=== PATIENT | female | born 1975 | race American Indian/Alaskan Native ===

== ENCOUNTER 2017-04-26 15:16 | Emergency (ER) | payer BC, OTHER ==
--- NOTE | 2017-04-26 17:39 | Emergency Department Report ---
Chief Complaint: Chest Pain Stated Complaint: BACK/CHEST PAIN Time Seen by Provider: 04/26/17 17:37 - HPI History of Present Illness: pt states she thought she was having gas pain last night. pt reports a pain behind her L shoulder blade. pt states today she was having chest pain - ROS Review of Systems: + cp + abd pain - Exam Physical Exam: abd soft and not tender + chest wall tenderness MSE screening note: Focused history and physical exam performed. Due to findings the following was ordered: ekg, labs, xr ED Disposition for MSE Condition: Stable
[2017-04-26 18:25] LABS: Basophils % (Auto) 1.1 % (0.0-1.8); Eosinophils % (Auto) 1.3 % (0.0-4.3); Hematocrit 33.9 % (30.3-42.9); Hemoglobin 10.6 gm/dl (10.1-14.3); Mean Corpuscular HGB Conc 31 % (30-34); Mean Corpuscular Volume 71 fl (79-97); Platelet Count 284 K/mm3 (140-440); Red Cell Distribution Width 18.7 % (13.2-15.2); White Blood Count 5.3 K/mm3 (4.5-11.0)
[2017-04-26 18:32] LABS: Mean Corpuscular Hemoglobin 22 pg (28-32)
[2017-04-26 18:36] LABS: INR 1.07 (0.87-1.13)
[2017-04-26 18:39] LABS: Alanine Aminotransferase 9 units/L (7-56); Albumin 4.4 g/dL (3.9-5); Albumin/Globulin Ratio 1.3 %; Alkaline Phosphatase 58 units/L (35-129); Anion Gap 18 mmol/L; Blood Urea Nitrogen 6 mg/dL (7-17); Calcium 9.5 mg/dL (8.4-10.2); Carbon Dioxide 26 mmol/L (22-30); Chloride 98.7 mmol/L (98-107); Glucose 86 mg/dL (65-100); Lipase 32 units/L (13-60); Potassium 3.8 mmol/L (3.6-5.0); Sodium 139 mmol/L (137-145); Total Protein 7.8 g/dL (6.3-8.2)
[2017-04-26] MEDS ORDERED: TORADOL IV ONE (23:15)
[2017-04-27] MEDS ORDERED: NORCO 10/325 PO ONE (00:36)
[2017-04-27] MEDS ORDERED: TYLENOL PO ONE (00:46)
[2017-04-27] MEDS ORDERED: MOTRIN PO ONE (00:46)
--- NOTE | 2017-04-27 00:49 | Emergency Department Report ---
ED General Adult HPI - General Chief complaint: Chest Pain Stated complaint: BACK/CHEST PAIN Time Seen by Provider: 04/26/17 17:37 Source: patient Mode of arrival: Ambulatory Limitations: No Limitations - History of Present Illness Initial comments: Patient is a 41-year-old female who presents with left-sided sided shoulder pain as been going on for last 4 days patient states that the pain is sharp it is intermittent. It is a 7 out of 10 breathing and makes the pain worse nothing makes it better. Patient denies recent travel, oral contraceptives, leg swelling, or any shortness of breath. Patient's pain radiates to her back. There are no symptoms associated with this She states she is tried over-the- counter medications but nothing seems to help her pain. She denies any nausea vomiting or any other symptoms. Severity scale (0 -10): 4 - Related Data Home Medications Medication Instructions Recorded Confirmed Last Taken Triamter/Hctz 37.5-25 mg 1 tab PO QDAY 12/05/14 04/26/17 12/05/14 [Maxzide-25] Previous Rx's Medication Instructions Recorded Last Taken Type Naproxen [Naproxen TAB] 250 mg PO Q6HR PRN #20 tablet 04/27/17 Unknown Rx Allergies Allergy/AdvReac Type Severity Reaction Status Date / Time No Known Allergies Allergy Verified 12/04/14 21:49 ED Review of Systems ROS: Stated complaint: BACK/CHEST PAIN Other details as noted in HPI Constitutional: denies: chills, fever Eyes: denies: eye pain, eye discharge, vision change ENT: denies: ear pain, throat pain Respiratory: denies: cough, shortness of breath, wheezing Cardiovascular: denies: chest pain, palpitations Endocrine: no symptoms reported Gastrointestinal: denies: abdominal pain, nausea, diarrhea Genitourinary: denies: urgency, dysuria, discharge Musculoskeletal: other (shoulder pain ) Skin: denies: rash, lesions Neurological: denies: headache, weakness, paresthesias Psychiatric: denies: anxiety, depression Hematological/Lymphatic: denies: easy bleeding, easy bruising ED Past Medical Hx - Past Medical History Previous Medical History?: Yes Hx Hypertension: Yes Additional medical history: Anemia, normal hemoglobin in the 8 range. Uterine fibroids with history of menorrhagia - Surgical History Past Surgical History?: Yes - Social History Smoking Status: Never Smoker Substance Use Type: None - Medications Home Medications: Home Medications Medication Instructions Recorded Confirmed Last Taken Type Triamter/Hctz 37.5-25 mg 1 tab PO QDAY 12/05/14 04/26/17 12/05/14 History [Maxzide-25] Naproxen [Naproxen TAB] 250 mg PO Q6HR PRN #20 tablet 04/27/17 Unknown Rx ED Physical Exam - General Limitations: No Limitations General appearance: alert, in no apparent distress - Head Head exam: Present: atraumatic, normocephalic - Eye Eye exam: Present: normal appearance - ENT ENT exam: Present: mucous membranes moist - Neck Neck exam: Present: normal inspection - Respiratory Respiratory exam: Present: normal lung sounds bilaterally, chest wall tenderness. Absent: respiratory distress - Cardiovascular Cardiovascular Exam: Present: regular rate, normal rhythm. Absent: systolic murmur, diastolic murmur, rubs, gallop - GI/Abdominal GI/Abdominal exam: Present: soft, normal bowel sounds - Extremities Exam Extremities exam: Present: normal inspection - Back Exam Back exam: Present: normal inspection - Neurological Exam Neurological exam: Present: alert, oriented X3 - Psychiatric Psychiatric exam: Present: normal affect, normal mood - Skin Skin exam: Present: warm, dry, intact, normal color. Absent: rash ED Course Vital Signs 04/26/17 04/26/17 04/27/17 17:36 20:50 02:17 Temperature 97.1 F L Pulse Rate 70 50 L 50 L Respiratory 16 16 16 Rate Blood Pressure 156/101 Blood Pressure 125/73 126/68 [Left] O2 Sat by Pulse 100 100 100 Oximetry - Reevaluation(s) Reevaluation #1: 04/26/17 23:27 Patient states that she is feeling better will send patient home with oral analgesic medications. ED Medical Decision Making - Lab Data Result diagrams: 04/26/17 17:41 04/26/17 17:47 Laboratory Results - last 24 hr 04/26/17 04/26/17 04/26/17 17:41 17:41 17:46 WBC 5.3 RBC 4.80 Hgb 10.6 Hct 33.9 MCV 71 L MCH 22 L MCHC 31 RDW 18.7 H Plt Count 284 Lymph % (Auto) 48.0 H [place] % (Auto) 8.9 H Eos % (Auto) 1.3 Baso % (Auto) 1.1 Lymph # 2.6 [place] # 0.5 Eos # 0.1 Baso # 0.1 Seg Neutrophils % 40.7 Seg Neutrophils # 2.2 PT 14.5 INR 1.07 APTT 33.0 Sodium Potassium Chloride Carbon Dioxide Anion Gap BUN Creatinine Estimated GFR BUN/Creatinine Ratio Glucose Calcium Total Bilirubin AST ALT Alkaline Phosphatase Troponin T Total Protein Albumin Albumin/Globulin Ratio Lipase HCG, Qual Negative 04/26/17 04/26/17 17:47 23:28 WBC RBC Hgb Hct MCV MCH MCHC RDW Plt Count Lymph % (Auto) [place] % (Auto) Eos % (Auto) Baso % (Auto) Lymph # [place] # Eos # Baso # Seg Neutrophils % Seg Neutrophils # PT INR APTT Sodium 139 Potassium 3.8 Chloride 98.7 Carbon Dioxide 26 Anion Gap 18 BUN 6 L Creatinine 0.6 L Estimated GFR > 60 BUN/Creatinine Ratio 10.00 Glucose 86 Calcium 9.5 Total Bilirubin 0.20 AST 12 ALT 9 Alkaline Phosphatase 58 Troponin T < 0.010 < 0.010 Total Protein 7.8 Albumin 4.4 Albumin/Globulin Ratio 1.3 Lipase 32 HCG, Qual - Radiology Data Radiology results: image reviewed X-ray: Shows no acute pulmonary disease - Medical Decision Making Chief medical diagnosis: Shoulder arthralgia Differential medical diagnosis: Pneumothorax, pneumonia, constocondritis We'll get CBC, CMP, troponin, chest x-ray and IM pain control Due to patient's lab results being normal and physical exam being within the normal limits patient has pleuritic chest pain and they're to likely pull chest wall muscle. Due to patient's point tenderness patient unlikely has a PE and has no clinical syndrome for pulmonary embolism. Critical care attestation.: If time is entered above; I have spent that time in minutes in the direct care of this critically ill patient, excluding procedure time. ED Disposition Clinical Impression: Chest wall pain, Left shoulder pain Disposition: TO HOME OR SELFCARE Is pt being admited?: No Does the pt Need Aspirin: No Condition: Stable Instructions: Costochondritis (ED), Chest Pain (ED) Prescriptions: Naproxen [Naproxen TAB] 250 mg PO Q6HR PRN #20 tablet PRN Reason: Pain Referrals: PRIMARY CARE, [Primary Care Provider] - 3-5 Days Time of Disposition: 00:47
[2017-04-27 02:17] VITALS: BP 126/68
--- NOTE | 2017-04-27 09:36 | XRay Report ---
ROUTINE CHEST, TWO VIEWS: History: Chest pain. PA and lateral views demonstrate the heart and mediastinal contour to be of normal size and shape. The lungs are clear and fully expanded and the soft tissues and bony structures are normal. IMPRESSION: Normal study.
== END 2017-04-27 02:47 | disposition home or self-care (01) ==
LOC: ED 15:16
DX: R07.89 Other chest pain (principal); M25.512 Pain in left shoulder; I10 Essential (primary) hypertension; D64.9 Anemia, unspecified
CPT/HCPCS: 36415; 71020; 80053; 83690; 84484; 84703; 85025; 85610; 85730; 93005; 93010; 96374; 99284; J1885

== ENCOUNTER 2020-08-16 03:25 | Emergency (ER) | payer BC ==
[2020-08-16] MEDS ORDERED: ASPIRIN 325 MG TAB PO ONE (04:50)
[2020-08-16 05:26] LABS: Basophils # (Auto) 0.1 K/mm3 (0.0-0.1); Eosinophils # (Auto) 0.1 K/mm3 (0.0-0.4); Eosinophils % (Auto) 1.2 % (0.0-4.3); Hemoglobin 10.4 gm/dl (10.1-14.3); Lymphocytes # (Auto) 1.9 K/mm3 (1.2-5.4); Mean Corpuscular HGB Conc 33 % (30-34); Mean Corpuscular Volume 73 fl (79-97); Monocytes # (Auto) 0.6 K/mm3 (0.0-0.8); Platelet Count 248 K/mm3 (140-440); Red Blood Count 4.37 M/mm3 (3.65-5.03); Red Cell Distribution Width 17.9 % (13.2-15.2)
[2020-08-16 05:41] LABS: Blood Urea Nitrogen 5 mg/dL (7-17); Calcium 9.6 mg/dL (8.4-10.2); Hemolysis Index 6
[2020-08-16 05:44] LABS: BUN/Creatinine Ratio 7
--- NOTE | 2020-08-16 06:34 | XRay Report ---
CHEST PA AND LATERAL VIEWS INDICATION: Chest Pain. COMPARISON: 04/26/2017. FINDINGS: Support devices: None. Heart: Within normal limits. Lungs/Pleura: No acute pulmonary or pleural findings. IMPRESSION: 1. No acute findings. Signer Name: Wilberto Cole MD Signed: 08/16/2020 6:29 AM Workstation Name: [id number]
[2020-08-16 07:37] VITALS: BP 152/96
[2020-08-16] MEDS ORDERED: KETOROLAC 30 MG/1 ML INJ IV ONE (07:49)
--- NOTE | 2020-08-16 08:49 | Emergency Department Report ---
ED Chest Pain HPI - General Chief Complaint: Chest Pain Stated Complaint: HBP/DIZZY Time Seen by Provider: 08/16/20 06:54 Source: patient Mode of arrival: Ambulatory Limitations: No Limitations - History of Present Illness Initial Comments: Patient is a 44-year-old F [place] female with a past medical history of hypertension who is presenting with chest discomfort which started around 2 AM. Patient states the discomfort lasted approximately 30 minutes. Patient is denies any shortness of breath nausea vomiting or diaphoresis. Patient states she does also have some achiness in her left upper back as well as her posterior neck. Patient states the pain did start after eating Thanksgiving meal. Patient states she is compliant with her blood pressure medications. Blood pressure was elevated on arrival. - Related Data Home Medications Medication Instructions Recorded Confirmed Last Taken Triamter/Hctz 37.5-25 mg 1 tab PO QDAY 12/05/14 04/26/17 12/05/14 [Maxzide-25] Previous Rx's Medication Instructions Recorded Last Taken Type Naproxen [Naproxen TAB] 250 mg PO Q6HR PRN #20 tablet 04/27/17 Unknown Rx Allergies Allergy/AdvReac Type Severity Reaction Status Date / Time No Known Allergies Allergy Verified 12/04/14 21:49 Heart Score - HEART Score History: Slightly suspicious EKG: Normal Age: < 45 Risk factors: 1-2 risk factors Troponin: < normal limit HEART Score: 1 ED Review of Systems ROS: Stated complaint: HBP/DIZZY Other details as noted in HPI Comment: All other systems reviewed and negative ED Past Medical Hx - Past Medical History Previous Medical History?: Yes Hx Hypertension: Yes Additional medical history: Anemia, normal hemoglobin in the 8 range. Uterine fibroids with history of menorrhagia - Surgical History Past Surgical History?: Yes Additional Surgical History: Uterine Embolization - Social History Smoking Status: Never Smoker Substance Use Type: None - Medications Home Medications: Home Medications Medication Instructions Recorded Confirmed Last Taken Type Triamter/Hctz 37.5-25 mg 1 tab PO QDAY 12/05/14 04/26/17 12/05/14 History [Maxzide-25] Naproxen [Naproxen TAB] 250 mg PO Q6HR PRN #20 tablet 04/27/17 Unknown Rx ED Physical Exam - General Limitations: No Limitations General appearance: alert, in no apparent distress - Head Head exam: Present: atraumatic, normocephalic - Eye Eye exam: Present: normal appearance - ENT ENT exam: Present: mucous membranes moist - Neck Neck exam: Present: normal inspection - Respiratory Respiratory exam: Present: normal lung sounds bilaterally. Absent: respiratory distress, wheezes, rales, rhonchi - Cardiovascular Cardiovascular Exam: Present: regular rate, normal rhythm, normal heart sounds. Absent: systolic murmur, diastolic murmur, rubs, gallop - GI/Abdominal GI/Abdominal exam: Present: soft, normal bowel sounds. Absent: distended, tenderness, guarding, rebound - Extremities Exam Extremities exam: Present: normal inspection - Back Exam Back exam: Present: normal inspection - Neurological Exam Neurological exam: Present: alert, oriented X3 - Psychiatric Psychiatric exam: Present: normal affect, normal mood - Skin Skin exam: Present: warm, dry, intact, normal color. Absent: rash ED Course Vital Signs 08/16/20 08/16/20 08/16/20 04:38 07:00 07:15 Temperature 98.3 F Pulse Rate 84 73 62 Respiratory 18 14 18 Rate Blood Pressure 177/92 141/94 146/83 O2 Sat by Pulse 100 100 100 Oximetry 08/16/20 07:30 Temperature Pulse Rate 64 Respiratory 18 Rate Blood Pressure 152/96 O2 Sat by Pulse 100 Oximetry FAN score - Fan Score Age > 65: (0) No Aspirin use within the Past 7 Days: (0) No 3 or more CAD Risk Factors: (0) No 2 or more Angina events in past 24 hrs: (0) No Known CAD with more than 50% Stenosis: (0) No Elevated Cardiac Markers: (0) No ST Deviation Greater than 0.5mm: (0) No FAN Score: 0 ED Medical Decision Making - Lab Data Result diagrams: 08/16/20 04:57 08/16/20 04:57 Lab Results 08/16/20 08/16/20 08/16/20 Range/Units 04:57 04:57 04:57 WBC 6.0 (4.5-11.0) K/mm3 RBC 4.37 (3.65-5.03) M/mm3 Hgb 10.4 (10.1-14.3) gm/dl Hct 32.0 (30.3-42.9) % MCV 73 L (79-97) fl MCH 24 L (28-32) pg MCHC 33 (30-34) % RDW 17.9 H (13.2-15.2) % Plt Count 248 (140-440) K/mm3 Lymph % (Auto) 31.0 (13.4-35.0) % [place] % (Auto) 10.0 H (0.0-7.3) % Eos % (Auto) 1.2 (0.0-4.3) % Baso % (Auto) 1.0 (0.0-1.8) % Lymph # (Auto) 1.9 (1.2-5.4) K/mm3 [place] # (Auto) 0.6 (0.0-0.8) K/mm3 Eos # (Auto) 0.1 (0.0-0.4) K/mm3 Baso # (Auto) 0.1 (0.0-0.1) K/mm3 Seg Neutrophils % 56.8 (40.0-70.0) % Seg Neutrophils # 3.4 (1.8-7.7) K/mm3 Sodium 140 (137-145) mmol/L Potassium 3.4 L (3.6-5.0) mmol/L Chloride 103.9 (98-107) mmol/L Carbon Dioxide 28 (22-30) mmol/L Anion Gap 12 mmol/L BUN 5 L (7-17) mg/dL Creatinine 0.7 (0.6-1.2) mg/dL Estimated GFR > 60 ml/min BUN/Creatinine Ratio 7 % Glucose 84 (65-100) mg/dL Calcium 9.6 (8.4-10.2) mg/dL Troponin T < 0.010 (0.00-0.029) ng/mL HCG, Qual Negative (Negative) 08/16/20 Range/Units 07:29 WBC (4.5-11.0) K/mm3 RBC (3.65-5.03) M/mm3 Hgb (10.1-14.3) gm/dl Hct (30.3-42.9) % MCV (79-97) fl MCH (28-32) pg MCHC (30-34) % RDW (13.2-15.2) % Plt Count (140-440) K/mm3 Lymph % (Auto) (13.4-35.0) % [place] % (Auto) (0.0-7.3) % Eos % (Auto) (0.0-4.3) % Baso % (Auto) (0.0-1.8) % Lymph # (Auto) (1.2-5.4) K/mm3 [place] # (Auto) (0.0-0.8) K/mm3 Eos # (Auto) (0.0-0.4) K/mm3 Baso # (Auto) (0.0-0.1) K/mm3 Seg Neutrophils % (40.0-70.0) % Seg Neutrophils # (1.8-7.7) K/mm3 Sodium (137-145) mmol/L Potassium (3.6-5.0) mmol/L Chloride (98-107) mmol/L Carbon Dioxide (22-30) mmol/L Anion Gap mmol/L BUN (7-17) mg/dL Creatinine (0.6-1.2) mg/dL Estimated GFR ml/min BUN/Creatinine Ratio % Glucose (65-100) mg/dL Calcium (8.4-10.2) mg/dL Troponin T < 0.010 (0.00-0.029) ng/mL HCG, Qual (Negative) - EKG Data -: EKG Interpreted by Fl - EKG Data 08/16/20 08:48 EKG shows sinus rhythm rate of 81. [place] is normal and intervals are normal except for prolonged NH. No ST segment elevation or depression. No T wave inversions. Time of interpretation is 5:10 AM - Radiology Data Findings [facility] [address] [place] [address] XRay Report Signed Patient: CAROLYN YU MR #: [id number] : 1975 Acct:[id number] Age/Sex: 44 / F ADM Date: 08/16/20 Loc: ED Attending Dr: Ordering Physician: ED MD KENAN Date of Service: 08/16/20 Procedure(s): XR chest routine 2V Accession Number(s): [id number] cc: ED MD KENAN Fluoro Time In Minutes: CHEST PA AND LATERAL VIEWS INDICATION: Chest Pain. COMPARISON: 04/26/2017. FINDINGS: Support devices: None. Heart: Within normal limits. Lungs/Pleura: No acute pulmonary or pleural findings. IMPRESSION: 1. No acute findings. Signer Name: Wilberto Cole MD Signed: 08/16/2020 6:29 AM Workstation Name: [email or web address] - Medical Decision Making Patient is a 44-year-old female who is presenting with some atypical chest pain. Patient has had 2 - troponins. Patient is pain does seem more musculoskeletal in nature. Patient was given medication for blood pressure control. Blood pressure is decreasing. Patient was given outpatient cardiology referral this to complete the chest pain work-up. Patient be discharged home. Critical care attestation.: If time is entered above; I have spent that time in minutes in the direct care of this critically ill patient, excluding procedure time. ED Disposition Clinical Impression: Atypical chest pain, Hypertensive urgency Disposition: DC-01 TO HOME OR SELFCARE Is pt being admited?: No Does the pt Need Aspirin: No Condition: Stable Instructions: Chest Pain (ED), Nonspecific Chest Pain, Adult, Hypertension, Adult, [id number] Referrals: JASON WALTER MD [Staff Physician] - 3-5 Days Time of Disposition: 08:50
== END 2020-08-16 09:06 | disposition home or self-care (01) ==
LOC: ED 03:25
DX: R07.89 Other chest pain (principal); I16.0 Hypertensive urgency; Z86.2 Personal history of diseases of the blood and blood-forming organs and certain disorders involving the immune mechanism; Z79.899 Other long term (current) drug therapy
CPT/HCPCS: 36415; 71046; 80048; 84484; 84703; 85025; 96374; 99284; J1885